=== PATIENT | female | born 1980 | race Caucasian/White ===

== ENCOUNTER 2016-09-09 16:36 | Emergency (ER) | payer OTHER ==
[2016-09-09 16:40] VITALS: TEMP 98.2; O2SAT 97
--- NOTE | 2016-09-09 16:56 | EDPHY ---
H & P Stated Complaint: Vaginal bleeding,cramps since noon; irreg periods since childbirth 09/2015 Time Seen by Provider: 09/09/16 16:51 HPI/ROS: CHIEF COMPLAINT: Dysmenorrhea HISTORY OF PRESENT ILLNESS: The patient presents to the ED with a 1 day history of heavy vaginal bleeding. She reports soaking a few pads. She reports passing clots. The patient reports she has had irregular menses since delivering in September of 2015. Patient denies any acute abdominal pain. She reportedly had a negative test at home 1 week ago. The patient denies any history of vaginal trauma. The patient denies history of vaginal discharge or pelvic pain. The patient denies any anticoagulant use. She denies significant past medical history. REVIEW OF SYSTEMS: A comprehensive 10 point review of systems is otherwise negative aside from elements mentioned in the history of present illness. Source: Patient Exam Limitations: No limitations - Personal History LMP (Females 10-55): Now Current Tetanus Diphtheria and Acellular Pertussis (TDAP): Yes Tetanus Vaccine Date: 07/2015 - Medical/Surgical History Other PMH: healthy - Social History Smoking Status: Never smoked - Physical Exam Exam: General Appearance: Alert, no distress Eyes: Pupils equal and round no pallor or injection ENT, Mouth: Mucous membranes moist Respiratory: There are no retractions, lungs are clear to auscultation Cardiovascular: Regular rate and rhythm Gastrointestinal: Abdomen is soft and nontender, no masses, bowel sounds normal Neurological: A&O, normal motor function, normal sensory exam, normal cranial nerves Skin: Warm and dry, no rashes Musculoskeletal: Neck is supple nontender Extremities: symmetrical, full range of motion Constitutional: Initial Vital Signs Temperature (C) 36.8 C 09/09/16 16:37 Heart Rate 93 09/09/16 16:37 Respiratory Rate 18 09/09/16 16:37 Blood Pressure 131/100 H 09/09/16 16:37 O2 Sat (%) 97 09/09/16 16:37 O2 Delivery Mode Room Air Allergies/Adverse Reactions: cefaclor [From Ceclor] Allergy (Mild, Verified 09/09/16 16:40) rash as child Home Medications: Medication Instructions Recorded NK [No Known Home Meds] 09/09/16 Medical Decision Making - Diagnostics Imaging Results: Imaging Impressions Pelvic/Renal Ultrasound 09/09/16 17:16 Impression: 1. 1.7 cm focus of probable hemorrhage within the right ovary, with adjacent mild peritoneal free fluid. 2. Small posterior fundal myometrial fibroid. Results called to Dr. Devonte Fabian at 6:15 PM. ED Course/Re-evaluation: The patient presents to the ED with 1 day of heavy vaginal bleeding. The patient was noted to be normotensive. She is not tachycardic. The patient's test is negative. The patient did have an IV established. She received a L of normal saline. Her abdominal examination is reassuring and benign. The patient was taken for a pelvic ultrasound. Pelvic ultrasound demonstrates no evidence of a torsion, uterine mass or significant endometrial abnormality. The patient is hemodynamically stable at this point time. I do feel that she can follow up with our on-call OBGYN for a recheck in the next several days. She has been instructed to return for heavy bleeding soaking more than 1 pad per hour several hours neuro, pain, fever or other concerns. Differential Diagnosis: Differential diagnosis considered includes ectopic , dysfunctional uterine bleeding, critical anemia - Data Points Laboratory Results: Laboratory Results 09/09/16 17:10 09/09/16 17:10 09/09/16 09/09/16 09/09/16 17:10 17:10 17:10 WBC 11.58 10^3/uL H 10^3/uL (3.80-9.50) RBC 4.78 10^6/uL 10^6/uL (4.18-5.33) Hgb 14.4 g/dL g/dL (12.6-16.3) Hct 42.9 % % (38.0-47.0) MCV 89.7 fL fL (81.5-99.8) MCH 30.1 pg pg (27.9-34.1) MCHC 33.6 g/dL g/dL (32.4-36.7) RDW 13.3 % % (11.5-15.2) Plt Count 293 10^3/uL 10^3/uL (150-400) MPV 10.4 fL fL (8.7-11.7) Neut % (Auto) 67.4 % % (39.3-74.2) Lymph % (Auto) 22.2 % % (15.0-45.0) [place] % (Auto) 8.6 % % (4.5-13.0) Eos % (Auto) 0.6 % % (0.6-7.6) Baso % (Auto) 0.5 % % (0.3-1.7) Nucleat RBC Rel Count 0.0 % % (0.0-0.2) Absolute Neuts (auto) 7.80 10^3/uL H 10^3/uL (1.70-6.50) Absolute Lymphs (auto) 2.57 10^3/uL 10^3/uL (1.00-3.00) Absolute Monos (auto) 1.00 10^3/uL H 10^3/uL (0.30-0.80) Absolute Eos (auto) 0.07 10^3/uL 10^3/uL (0.03-0.40) Absolute Basos (auto) 0.06 10^3/uL 10^3/uL (0.02-0.10) Absolute Nucleated RBC 0.00 10^3/uL 10^3/uL (0-0.01) Immature Gran % 0.7 % % (0.0-1.1) Immature Gran # 0.08 10^3/uL 10^3/uL (0.00-0.10) Sodium 142 mEq/L mEq/L (134-144) Potassium 3.9 mEq/L mEq/L (3.5-5.2) Chloride 105 mEq/L mEq/L (97-110) Carbon Dioxide 22 mEq/l mEq/l (22-31) Anion Gap 15 mEq/L mEq/L (8-16) BUN 14 mg/dL mg/dL (7-23) Creatinine 0.7 mg/dL mg/dL (0.6-1.0) Estimated GFR > 60 Glucose 102 mg/dL H mg/dL (70-100) Calcium 9.4 mg/dL mg/dL (8.5-10.4) Beta HCG, Qual NEGATIVE Departure - Departure Disposition: Home, Routine, Self-Care Clinical Impression: Uterine bleeding Condition: Good Instructions: Dysfunctional Uterine Bleeding (ED) Additional Instructions: 1. Return to the ED for lightheadedness, increasing abdominal pain, heavy bleeding as defined by soaking more than 1 pad per hour several hours in a row or other concerns. 2. Your pelvic ultrasound demonstrates no evidence of obvious uterine or pelvic pathology. Your blood count is stable. Referrals: Oliva Daniels MD [Medical Doctor] - As per Instructions
[2016-09-09 17:23] LABS: % IMMATURE GRANULYOCYTES 0.7 % (0.0-1.1); ABSOLUTE IMMATURE GRANULOCYTES 0.08 10^3/uL (0.00-0.10); ADD DIFF? NO; ADD MORPH? NO; ADD SCAN? NO; ATYPICAL LYMPHOCYTE FLAG 0 (0-99); FRAGMENT RBC FLAG 0 (0-99); HEMATOCRIT 42.9 % (38.0-47.0); HEMOGLOBIN 14.4 g/dL (12.6-16.3); LEFT SHIFT FLG 0 (0-99); LIPEMIA HEMOLYSIS FLAG 80 (0-99); MEAN CELL HEMOGLOBIN 30.1 pg (27.9-34.1); MEAN CELL HEMOGLOBIN CONCENTR. 33.6 g/dL (32.4-36.7); MEAN CELL VOLUME 89.7 fL (81.5-99.8); MEAN PLATELET VOLUME 10.4 fL (8.7-11.7); PLATELET CLUMPS FLAG 20 (0-99); PLATELET COUNT 293 10^3/uL (150-400); RED BLOOD CELL COUNT 4.78 10^6/uL (4.18-5.33); RED CELL DISTRIBUTION WIDTH 13.3 % (11.5-15.2)
[2016-09-09 17:44] LABS: ANION GAP 15 mEq/L (8-16); CALCIUM 9.4 mg/dL (8.5-10.4); CARBON DIOXIDE 22 mEq/l (22-31); CHLORIDE 105 mEq/L (97-110); CREATININE 0.7 mg/dL (0.6-1.0); GLOMERULAR FILTRATION RATE > 60; GLUCOSE 102 mg/dL (70-100); POTASSIUM 3.9 mEq/L (3.5-5.2); SODIUM 142 mEq/L (134-144)
[2016-09-09 19:03] VITALS: BP 107/70; PULSE 84; RESP 16
== END 2016-09-09 19:02 | disposition home or self-care (01) ==
DX: N93.9 Abnormal uterine and vaginal bleeding, unspecified (principal)

== ENCOUNTER → 2017-08-25 | Outpatient (CLI) | payer OTHER | LOC: FIMAGING 11:55 | PROVIDERS: ATTEND Obstetrics & Gynecology | DX: O99.212 Obesity complicating pregnancy, second trimester (principal); O09.522 Supervision of elderly multigravida, second trimester; Z68.36 Body mass index [BMI] 36.0-36.9, adult; Z3A.20 20 weeks gestation of pregnancy ==